=== PATIENT | female | born 2005 | race Caucasian/White ===

== ENCOUNTER 2024-05-26 12:51 | Emergency (ER) | payer MEDICAID ==
[~2024-05-26] VITALS: Ht 175.3 cm; Wt 70.3 kg
[2024-05-26 13:13] VITALS: BP 121/71; TEMP 98.7; O2SAT 100
[2024-05-26] MEDS ORDERED: ACETAMINOPHEN 325 MG TABLET ONE (14:07)
[2024-05-26] MEDS ORDERED: TDAP [DIPH/PERTUSSIS/TET] 0.5 ML VIAL IM ONE (14:08)
[2024-05-26] MEDS: ACETAMINOPHEN 325 MG TABLET PO ONE (14:23)
[2024-05-26] MEDS: TDAP [DIPH/PERTUSSIS/TET] 0.5 ML VIAL IM ONE (14:24)
[2024-05-26 14:35] LABS: PREGNANCY TEST URINE QUAL NEGATIVE (NEGATIVE)
[2024-05-26] MEDS ORDERED: ACET-2605 PO (19:44)
[2024-05-26] MEDS ORDERED: NAPR-1009 PO (19:44)
== END 2024-05-26 19:50 | disposition left against medical advice (07) ==
LOC: ER 12:51
DX: S00.83XA Contusion of other part of head, initial encounter (principal); S00.511A Abrasion of lip, initial encounter; S00.212A Abrasion of left eyelid and periocular area, initial encounter; S80.211A Abrasion, right knee, initial encounter; S80.212A Abrasion, left knee, initial encounter; M25.512 Pain in left shoulder; M25.532 Pain in left wrist; M79.644 Pain in right finger(s); M25.522 Pain in left elbow; W05.1XXA Fall from non-moving nonmotorized scooter, initial encounter; Y93.89 Activity, other specified; Y92.488 Other paved roadways as the place of occurrence of the external cause; Y99.8 Other external cause status
CPT/HCPCS: 70450-TC; 70486-TC; 73030-TC; 73080-TC; 73110; 73130-TC; 73564-TC; 84703-TC; 90715